=== PATIENT | female | born 1950 | race Caucasian/White ===

== ENCOUNTER 2020-08-12 20:29 | Outpatient (CLI) | payer MEDICARE, OTHER | END 2020-08-12 20:30 | disposition home or self-care (01) | LOC: COV 20:29 | PROVIDERS: ATTEND Family Medicine | DX: R50.9 Fever, unspecified (principal); R05 Cough; R06.02 Shortness of breath; M79.10 Myalgia, unspecified site; R53.83 Other fatigue; R07.0 Pain in throat; R09.81 Nasal congestion; R11.2 Nausea with vomiting, unspecified; Z20.828 Contact with and (suspected) exposure to other viral communicable diseases ==